=== PATIENT | male | born 1975 | race Two or more races ===

== ENCOUNTER 2024-09-14 09:18 | Outpatient (AMB) | payer SELFPAY ==
[2024-09-14 09:24] VITALS: BP 122/74; PULSE 59; RESP 18; TEMP 36.7; O2SAT 97; BMI 26.4
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
== END 2024-09-14 11:44 | disposition home or self-care (01) ==
LOC: HODAHC 09:18
PROVIDERS: Supervising Provider Internal Medicine
DX: Z00.00 Encounter for general adult medical examination without abnormal findings (principal); M25.512 Pain in left shoulder; M25.511 Pain in right shoulder; M77.8 Other enthesopathies, not elsewhere classified; F41.8 Other specified anxiety disorders; E05.90 Thyrotoxicosis, unspecified without thyrotoxic crisis or storm
CPT/HCPCS: 99213; G0463

== ENCOUNTER 2024-10-08 10:03 | Emergency (ER) | payer MEDICAID, SELFPAY ==
[2024-10-08 10:04] VITALS: BMI 25.7
[2024-10-08 10:39] VITALS: BP 117/65; PULSE 61; RESP 19; TEMP 37; O2SAT 97
--- NOTE | 2024-10-08 10:47 | XR_ITS ---
Examination: CT brain head without contrast. 2-D sagittal coronal reconstructions Date and time of exam:October 08, 2024 1231 hrs. Comparison October 23, 2020 Indications: Onset headaches dizziness left arm numbness beginning 3 days ago CTDI: vol (mGy):51.4 DLP: (mGycm):1101 Technique: Multiple CT axial sections of the brain have been obtained, 5 mm slice thickness. Contrast has not been administered. 2-D sagittal, coronal reconstructions have been obtained Low dose protocols were performed. One or more of the following dose reduction techniques were used; automated exposure control, adjustment of the mA and/or KV according to patient size, use of iterative reconstruction technique. Findings: No significant ventricular enlargement. Intra-axial or extra-axial hemorrhage density is not seen. No mass effect or midline shift Basal cisterns are not remarkable. Fourth ventricle is midline. Cranial vault intact. Impression: Negative for acute hemorrhage, mass effect or midline shift As clinically warranted, brain MRI follow-up would best assess for demyelinating disease, acute ischemic change
--- NOTE | 2024-10-08 10:47 | PD.EDRME ---
Rapid Medical Screening Exam RME Arrival date/time: 10/08/24 10:03 49-year-old male with past medical history of hypothyroid presents emergency department complaining of intermittent facial and left arm numbness with severe headache 10 out of 10 that is been ongoing for 1 week. Chief Complaint: Neuro Symptoms/Deficit Time Seen by Provider: 10/08/24 10:38 Vital signs: Vital Signs Temperature 98.6 F 10/08/24 10:39 Pulse Rate 61 10/08/24 10:39 Respiratory Rate 19 10/08/24 10:39 Blood Pressure 117/65 10/08/24 10:39 Pulse Oximetry (%) 97 10/08/24 10:39 Oxygen Delivery Method Room Air 10/08/24 10:39 Vital signs reviewed by provider: Yes
[2024-10-08 11:16] LABS: Basophils % (Auto) 0 % (0-2.5); Eosinophils # (Auto) 0.1 Thou/mm3 (0.0-0.5); Eosinophils % (Auto) 1 % (0-10); Hematocrit 44.4 % (41.0-53.0); Hemoglobin 15.7 g/dL (13.5-16.0); Immature Granulocytes % (Auto) 0 % (0-0); Immature Granulocytes Auto 0.01 Thou/mm3 (0.00-0.00); Lymphocytes # (Auto) 2.7 Thou/mm3 (1.0-4.8); Lymphocytes % (Auto) 43 % (10-50); Mean Corpuscular HGB Conc 35.4 g/dl (31.0-37.0); Mean Corpuscular Hemoglobin 33.1 pg (25.0-35.0); Mean Corpuscular Volume 94 fL (80-100); Monocytes # (Auto) 0.5 Thou/mm3 (0.0-0.8); Monocytes % (Auto) 7 % (0-12); Neutrophils # (Auto) 3.1 Thou/mm3 (1.8-7.7); Neutrophils % (Auto) 48 % (37-80); Nucleated Red Blood Cell % 0 /100 WBC (0); Platelet Count 298 Thou/mm3 (140-440); RDW Standard Deviation 40.3 fL (35.1-43.9); Red Blood Count 4.75 Miln/mm3 (4.50-5.90); White Blood Count 6.4 Thou/mm3 (3.8-10.6)
[2024-10-08] MEDS: ACETAMINOPHEN 500 MG TABLET 1000 MG PO (11:21)
[2024-10-08 11:35] LABS: Alanine Aminotransferase 20 U/L (10-49); Albumin, Serum 4.9 gm/dL (3.5-5.0); Albumin/Globulin Ratio 1.9 (1.2-2.2); Alkaline Phosphatase 74 U/L (46-116); Anion Gap 4 (7-16); Aspartate Amino Transferase 18 U/L (0-34); BUN/Creatinine Ratio 5 Ratio (12-20); Bilirubin,Total 0.5 mg/dL (0.3-1.2); Blood Urea Nitrogen 5 mg/dL (9-23); Calcium 10.2 mg/dL (8.3-10.6); Calcium (Corrected) 10.2 mg/dL (8.5-10.1); Carbon Dioxide 29.9 mMol/L (20.0-31.0); Chloride 105 mMol/L (98-107); Creatinine (Component) 1.1 mg/dL (0.6-1.3); Estimated Creatinine Clearance 86.5 mL/min (>60); Globulin 2.6 gm/dL (2.3-3.5); Glucose 95 mg/dL (74-106); Osmolality,Calculated 274 (275-295); Potassium 5.3 mMol/L (3.4-5.1); Sodium 139 mMol/L (136-145); Thyroid Stimulating Hormone 0.95 uIU/mL (0.55-4.78); Total Protein 7.5 gm/dL (5.7-8.2); eGFR > 60 See Note
[2024-10-08 11:40] LABS: Amphetamine/Methamp Scrn,U Negative (Negative); Barbiturate Screen,Urine Negative (Negative); Benzodiazepines Screen,Urine Negative (Negative); Benzoylecgonine Screen, Ur Negative (Negative); Fentanyl Screen,Urine Negative (Negative); Opiate Screen,Urine Negative (Negative); THC Screen,Urine Positive (Negative)
[2024-10-08 14:32] VITALS: BP 122/83; PULSE 63; RESP 18; TEMP 37.2; O2SAT 98
--- NOTE | 2024-10-08 14:33 | EDNOTE_ITS ---
ED General RME/HPI General Chief complaint: Neuro Symptoms/Deficit Stated complaint: HEADACHE, LEFT SIDE NUMBNESS, FACIAL X2 Time Seen by Provider: 10/08/24 10:38 Arrival date/time: 10/08/24 10:03 CC: Bilateral is numbness and tingling and pain in the upper extremities HPI onset a week plus ago intermittent in nature currently there. Patient is states he is unable to do push-ups secondary to pain in his left arm greater than the right. Patient denies falls or any other repetitive motion. RME / HPI RME / HPI narrative: 10/08/24 10:03 49-year-old male with past medical history of hypothyroid presents emergency department complaining of intermittent facial and left arm numbness with severe headache 10 out of 10 that is been ongoing for 1 week. Related Data Previous Rx's ?Medication ?Instructions ?Recorded ibuprofen 600 mg tablet (IBU) 600 mg PO Q8H PRN pain #90 tabs 09/14/24 prednisone 20 mg tablet See Taper PO BID 3 days #6 tabs 10/08/24 Allergies Allergy/AdvReac Type Severity Reaction Status Date / Time peanut Allergy Severe HIVES Verified 10/08/24 10:05 peanut oil Allergy Severe HIVES Verified 10/08/24 10:05 Review of Systems Review of Systems Narrative Review of Systems: GEN: No fever, no chills, no weight loss EYES: No discharge, no visual changes, no pain HEENT: No ear pain, no congestion, no sore throat PULM: No shortness of breath, no cough, no congestion CV: No chest pain, no dyspnea on exertion, no palpitations GI: No nausea, no vomiting, no diarrhea, no pain, no constipation : No frequency, no urgency, no dysuria MUSC/SKEL: No joint pain, no back pain,+ upper extremity pain SKIN: No rash PSYCH: No hallucinations, no depression HEME/LYMPH: No easy bleeding or bruising tendencies NEURO: No weakness, no headache Past Medical History Past Medical History CARDIAC: Negative Congestive Heart Failure RESPIRATORY: Negative Chronic Obstructive Pulmonary Disease (COPD) GENITOURINARY: Negative Renal Disease MUSCULOSKELETAL: Positive Musculoskeletal Disorders ENDOCRINE: Negative Diabetes Mellitus Type 1 or Diabetes Mellitus Type 2 Social History SMOKING STATUS: Never smoker SUBSTANCE USE: marijuana (Okay) ED Exam Narrative Physical exam: [General: In mild discomfort but not in any acute distress Head normocephalic HEENT: Within acceptable limits Neck is supple nontender Chest equal chest rise nontender to palpation Respiratory: Clear to auscultation no wheezes crackles or rubs CV: Rate rhythm is regular no murmurs rubs or clicks Abdomen is flat soft nontender no masses positive bowel sounds all 4 quadrants Back: No CVA tenderness no spinous process tenderness from cervical spine thoracic and lumbar spine Skin: Intact no petechiae rash induration ulceration or crepitus Extremities: Moving all extremities against resistance cap refill less than 2 seconds neurosensory intact: Upper extremities strength 5/5 rail signal 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 is 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 cap refill less than 2 seconds neurosensory intact Neuro: Awake alert oriented x3 Glascow coma 15 no focal deficits] Course Quality Measures none Orders Category Date Time Status CT head/brain wo con Stat Exams 10/08/24 10:47 Completed CBC Stat Lab 10/08/24 10:56 Completed CMP [Comprehensive Metabolic Panel] Stat Lab 10/08/24 10:56 Completed Drug Screen,Urine Stat Lab 10/08/24 11:08 Completed Free T4 (Free Thyroxine) Stat Lab 10/08/24 10:56 Completed TSH [Thyroid Stimulating Hormone] Stat Lab 10/08/24 10:56 Completed Acetaminophen Tab [Tylenol ES Tab] Med 10/08/24 10:47 Discontinued 1,000 mg PO X1 ONE Vital Signs Vital signs: Vital Signs Temperature 98.6 F 10/08/24 10:39 Pulse Rate 61 10/08/24 10:39 Respiratory Rate 19 10/08/24 10:39 Blood Pressure 117/65 10/08/24 10:39 Pulse Oximetry (%) 97 10/08/24 10:39 Oxygen Delivery Method Room Air 10/08/24 10:39 [facility] Patient data External records reviewed:: [facility] previous records Clinical information provided by:: patient Social determinants that could affect healthcare access:: none Patient has the following chronic illnesses:: None How is presenting disease/condition affected by chronic disease/condition?: u neffected by Evaluation data The following diagnostics were reviewed and interpreted by me:: lab results and radiology exam(s) Lab and/or radiology exams considered but not ordered:: CT head is interpreted by me read by radiology as negative for any acute finding CBC shows no acute leukocytosis, anemia thrombocytopenia CMP shows a mildly elevated potassium at 5.3 no other electrolyte imbalances renal impairment transaminitis or T. bili elevation Urine is positive for THC TSH is within acceptable limits Interpretation Summary: I suspect this is paresthesia in both upper extremities this could be secondary to nerve impingement in the cervical spine patient states he has had episodes like this in the past that spontaneously resolved. Patient does admit that he is under large amount of stress. Patient be discharged home with a diagnosis of upper extremity paresthesia follow-up with primary care provider consider referral outpatient to cervical spasm prescription benefit specialist. Medications Medications considered but not ordered:: None Medication administrations:: Medication Administration History Discontinued Medications Acetaminophen (Acetaminophen 500 Mg Tablet) 1,000 mg PO X1 ONE Stop: 10/08/24 10:48 Last Admin: 10/08/24 11:21 Dose: 1,000 mg Documented By: [facility] None Consultations Consultation(s) initiated? (list below): No Diagnosis Differential Diagnosis ED Complaint MDM: Hyperesthesia cervical spine nerve impingement paresthesia Most likely diagnosis given after review of the tests above:: Hyperesthesia Admission Indicated Admission indicated?: not indicated Explain why admission is indicated or not indicated:: Stable for outpatient follow-up Admission Request Was there a request for admission?: No Disposition Plan Disposition Plan: Discharge Discharge Attestation Discharge Attestation: The patient and all family members were given an opportunity to ask questions and understood the discharge instructions. Discharge instructions specifically effects, indications for sooner follow up or return to the emergency department, and the expected course of current diagnosis. Patient condition: Stable Medical Decision Making Differential Diagnosis Differential Diagnosis: Hyperesthesia cervical spine nerve impingement paresthesia Lab Data 10/08/24 10:56 10/08/24 10:56 Labs: Lab Results 10/08/24 10/08/24 Range/Units 10:56 11:08 WBC 6.4 (3.8-10.6) Thou/mm3 RBC 4.75 (4.50-5.90) Miln/mm3 Hgb 15.7 (13.5-16.0) g/dL Hct 44.4 (41.0-53.0) % MCV 94 (80-100) fL MCH 33.1 (25.0-35.0) pg MCHC 35.4 (31.0-37.0) g/dl RDW Std Deviation 40.3 (35.1-43.9) fL Plt Count 298 (140-440) Thou/mm3 Neut % (Auto) 48 (37-80) % Lymph % (Auto) 43 (10-50) % Rice % (Auto) 7 (0-12) % Eos % (Auto) 1 (0-10) % Baso % (Auto) 0 (0-2.5) % Neut # (Auto) 3.1 (1.8-7.7) Thou/mm3 Lymph # (Auto) 2.7 (1.0-4.8) Thou/mm3 Rice # (Auto) 0.5 (0.0-0.8) Thou/mm3 Eos # (Auto) 0.1 (0.0-0.5) Thou/mm3 Baso # (Auto) 0.0 (0.0-0.2) Thou/mm3 Immature Gran # (Auto) 0.01 H (0.00-0.00) Thou/mm3 Absolute Nucleated RBC 0.00 (0.00-0.00) Thou/mm3 Immature Gran % 0 (0-0) % Nucleated RBC % 0 (0) /100 WBC Sodium 139 (136-145) mMol/L Potassium 5.3 H (3.4-5.1) mMol/L Chloride 105 (98-107) mMol/L Carbon Dioxide 29.9 (20.0-31.0) mMol/L Anion Gap 4 L (7-16) BUN 5 L (9-23) mg/dL Creatinine 1.1 (0.6-1.3) mg/dL Estim Creat Clear Calc 86.5 (>60) mL/min eGFR > 60 (60 - ) See Note BUN/Creatinine Ratio 5 L (12-20) Ratio Glucose 95 (74-106) mg/dL Calculated Osmolality 274 L (275-295) Calcium 10.2 (8.3-10.6) mg/dL Corrected Calcium 10.2 H (8.5-10.1) mg/dL Total Bilirubin 0.5 (0.3-1.2) mg/dL AST 18 (0-34) U/L ALT 20 (10-49) U/L Alkaline Phosphatase 74 (46-116) U/L Total Protein 7.5 (5.7-8.2) gm/dL Albumin 4.9 (3.5-5.0) gm/dL Globulin 2.6 (2.3-3.5) gm/dL Albumin/Globulin Ratio 1.9 (1.2-2.2) TSH 0.95 (0.55-4.78) uIU/mL Free T4 1.20 (0.89-1.76) ng/dL Urine Opiates Screen Negative (Negative) Urine Fentanyl Screen Negative (Negative) Ur Barbiturates Screen Negative (Negative) U Amphetamin/Meth Scrn Negative (Negative) U Benzodiazepines Scrn Negative (Negative) U Cocaine Metab Screen Negative (Negative) U Marijuana (THC) Screen Positive A (Negative) Discharge Plan Plan Patient Disposition: HOME (Self Care) Patient condition on transfer: Stable Prescriptions/Referrals Prescriptions/Med Rec: New prednisone 20 mg tablet See Taper PO BID 3 Days Qty: 6 0RF Taper: Prednisone Taper 20 mg DAILY for 2 Days and 0 Hour 10 mg DAILY for 2 Days and 0 Hour 5 mg DAILY for 7 Days and 0 Hour No Action ibuprofen [IBU] 600 mg tablet 600 mg PO Q8H MDD 3 pills PRN (Reason: pain) Qty: 90 0RF Rx Instructions: Take with food. Referrals: Raza Romo MD [Primary Care Provider] - In 1 week Problem List Clinical Impression: Paresthesia Patient/Caregiver Discharge Instructions Print Language: Amharic Stand Alone Forms: [place] Award Info., Patient Portal Info Letter
== END 2024-10-08 14:45 | disposition home or self-care (01) ==
PROVIDERS: Emergency Provider Emergency Medicine; PCP Family Medicine
DX: R20.2 Paresthesia of skin (principal); R51.9 Headache, unspecified; R42 Dizziness and giddiness
CPT/HCPCS: 36415; 70450; 80053; 80307; 84439; 84443; 85025; 99284; A9270

== ENCOUNTER 2025-03-15 08:54 | Outpatient (AMB) | payer MEDICAID, SELFPAY ==
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
[2025-03-15 09:13] VITALS: BP 150/85; PULSE 57; RESP 18; TEMP 36.6; O2SAT 96; BMI 25.8
== END 2025-03-15 10:19 | disposition home or self-care (01) ==
LOC: HODAHC 08:54
PROVIDERS: Supervising Provider Internal Medicine; Visit Provider Student in an Organized Health Care Education/Training Program
DX: E05.90 Thyrotoxicosis, unspecified without thyrotoxic crisis or storm (principal); F43.11 Post-traumatic stress disorder, acute; M25.512 Pain in left shoulder; M77.8 Other enthesopathies, not elsewhere classified; G89.29 Other chronic pain; R10.2 Pelvic and perineal pain
CPT/HCPCS: 99213; G0463

== ENCOUNTER 2025-03-22 09:20 | Outpatient (AMB) | payer MEDICAID, SELFPAY ==
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
[2025-03-22 09:32] VITALS: BP 110/70; PULSE 64; RESP 18; TEMP 36.8; O2SAT 97; BMI 26.3
== END 2025-03-22 10:08 | disposition home or self-care (01) ==
LOC: HODAHC 09:20
PROVIDERS: Supervising Provider Internal Medicine
DX: M54.32 Sciatica, left side (principal); M54.31 Sciatica, right side; N39.43 Post-void dribbling; R53.82 Chronic fatigue, unspecified
CPT/HCPCS: 99213; G0463

== ENCOUNTER → 2025-03-23 | Outpatient (CLI) | payer MEDICAID, SELFPAY ==
--- NOTE | 2025-03-23 10:25 | XR_ITS ---
Examination: Lumbar spine 3 views Technique one AP lateral coned lateral lower lumbar spine 3 views Date and time: March 23, 2025 1048 hours INDICATIONS: Low back pain several years radiating down both legs FINDINGS: Satisfactory alignment lumbar vertebral bodies No lumbar fracture No spondylolisthesis Diffuse lumbar disc narrowing, advanced L5-S1 IMPRESSION: Diffuse lumbar degenerative disc disease, advanced L5-S1
== END | disposition home or self-care (01) ==
DX: M51.379 Other intervertebral disc degeneration, lumbosacral region without mention of lumbar back pain or lower extremity pain (principal); M54.30 Sciatica, unspecified side
CPT/HCPCS: 72100

== ENCOUNTER 2025-04-16 13:46 | Outpatient (AMB) | payer MEDICAID, SELFPAY ==
[2025-04-16 14:17] VITALS: BP 108/65; PULSE 59; RESP 18; TEMP 36.8; O2SAT 97; BMI 26.1
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
== END 2025-04-16 15:56 | disposition home or self-care (01) ==
LOC: HODAHC 13:46
PROVIDERS: Supervising Provider Internal Medicine
DX: M51.362 Other intervertebral disc degeneration, lumbar region with discogenic back pain and lower extremity pain (principal); M77.8 Other enthesopathies, not elsewhere classified; E78.5 Hyperlipidemia, unspecified; N39.8 Other specified disorders of urinary system
CPT/HCPCS: 99213; G0463

== ENCOUNTER → 2025-05-22 | Outpatient (CLI) | payer MEDICAID, SELFPAY ==
--- NOTE | 2025-05-22 15:30 | XR_ITS ---
Examination: MRI right elbow, without contrast Date and time of exam: May 22, 2025 1908 hours Comparison 06/16/2022 INDICATIONS: Right elbow pain 3 years Technique: Multiple axial sagittal and coronal images of the right elbow have been obtained with the Siemens high-resolution 1.5 Lizzeth MRI scanner. Images obtained include T2-weighted fat-suppressed sagittal sections, TR 3500, TE 46, T2 weighted coronal fat suppressed images, TR 3050, TE 84, T2-weighted transverse fat suppressed images, TR 3260, TE 63, proton density transverse images, TR 4720 TE 46, and T1 weighted coronal images, TR 560, TE 13. Findings: Mild narrowing of multiple joints with reactive marrow edema lateral humeral condylar region Small elbow effusion Mild strain common flexor tendon Extensor tendon and radial annular ligament intact Normal insertion long head of the biceps into radial tuberosity Increased thickness and increased signal in the triceps tendon consistent with strain No occult fracture Spurring of the coronoid process of the ulna No ulnar nerve impingement IMPRESSION: Mild osteoarthritis Reactive marrow edema in the lateral humeral condylar region secondary to joint narrowing Mild strain common flexor tendon Normal insertion long head of the biceps into the radial tuberosity Moderate tendinosis and strain triceps tendon No occult fracture
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
== END | disposition home or self-care (01) ==
LOC: SMRI 15:53
DX: M51.370 Other intervertebral disc degeneration, lumbosacral region with discogenic back pain only (principal); M48.061 Spinal stenosis, lumbar region without neurogenic claudication; M19.021 Primary osteoarthritis, right elbow; R60.0 Localized edema; S46.311A Strain of muscle, fascia and tendon of triceps, right arm, initial encounter; X83.8XXA Intentional self-harm by other specified means, initial encounter
CPT/HCPCS: 72148; 73221

== ENCOUNTER 2025-05-24 12:48 | Outpatient (RCR) | payer MEDICAID, SELFPAY ==
--- NOTE | 2025-05-24 13:15 | PT.OIERPT ---
PT OP Initial Eval Patient Information Outpatient Physical Therapy Treatment Date: 05/24/25 Visit Reasons: Left shoulder pain/Pelvic pain Medical Diagnosis: M25.512 M77.8 R10.2 Start of Care: 05/24/25 Date of Onset: 15 yrs ago Smoking Status Smoking Status: Unknown if ever smoked Are you interested in quitting?: Yes Would you like additional Smoking Cessation Counseling?: No Initial Assessment Subjective: Pt is 49 yr old male with c/o LBP that radiates into the LE's, B elbow pain and L shoulder pain. Pt reports loss of strength of B LE's and can walk about 1 block and other times it's worse and he has to rest every 100 feet and he loses strength completely. This limits all activities. The L shoulder started hurting 01/23/23 and it hurts to reach behind the back. PMH: hypothyroidism Imaging: MRI of L/S L5-S1 6 mm central lumbar disc bulge displacing both right and left S1 nerve, roots extending to the left intervertebral foramen producing mild left L5, ganglionic compression, L4-L5 severe overall spinal stenosis, axial image 8, 11 mm extruded central disc, severely indenting the thecal sac, combined with facet arthropathy and, thickening of ligamenta flava circumferentially surrounding the thecal sac Pt goal: less pain Objective: L shoulder ArOM: FF: 125 deg Abd: 125 deg with pain ER: 80 deg HBB: pain Zaragoza Hardik: positive Trunk ArOM: ? B SB 50% of normal with pain ? Extension: 20% with pain around L4-5, L5-S1 ? Flexion: 14 from floor with LBP ? B rotation: 60% with pain ? TTP: moderate paraspinals L5-S1 ? Neuro: R SLR: positive Assessment: Pt presents with high tissue irritability of the L/S and pain radiating into the LE's consistent with MRI that reveals severe stenosis, 11mm extruded disc, 6mm disc bulge at L5-S1 and other significant findings. Pt not likely going to benefit from skilled therapy to meet goals and has poor rehab potential since it looks like L5-S1 disc space is severely compressed and it is bone on bone. PT recommends orthopedic evaluation. He is managing the shoulder pain at home with exercises and he would prefer to continue with that at home and pt was given HEP printout. 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
== END 2025-06-10 23:59 | disposition home or self-care (01) ==
LOC: CPTX 12:48
PROVIDERS: PCP Psychiatry & Neurology Neurology; Referring Provider Psychiatry & Neurology Neurology; Visit Provider Student in an Organized Health Care Education/Training Program
DX: M25.512 Pain in left shoulder (principal); M77.8 Other enthesopathies, not elsewhere classified; R10.2 Pelvic and perineal pain; M54.50 Low back pain, unspecified; M25.522 Pain in left elbow; M25.521 Pain in right elbow
CPT/HCPCS: 97162

== ENCOUNTER 2025-06-04 15:17 | Outpatient (AMB) | payer MEDICAID, SELFPAY ==
[2025-06-04 15:05] VITALS: BP 110/71; PULSE 61; RESP 19; TEMP 36.6; O2SAT 98; BMI 25.7
--- NOTE | 2025-06-05 10:59 | ACNOTE_ITS ---
Vital Signs 06/04/25 15:05 Height 1.8 m Height Method Stated Weight 83.518 kg Weight Measurement Method Standing Scale BMI 25.7 BP 110/71 Blood Pressure Source Automatic Cuff Blood Pressure Location Right Upper Arm Position Sitting Respiration 19 Pulse 61 Pulse Source Monitor Temp 97.8 F Temp Source Temporal Artery Scan Pulse Oximetry (%) 98 Oxygen Delivery Method Room Air Allergies/Meds Allergies & Medications Allergies peanut Allergy (Severe, Verified 04/16/25 14:17) HIVES peanut oil Allergy (Severe, Verified 04/16/25 14:17) HIVES MA Intake Visit Data Collection New Patient or Established: Established Patient (seen at [facility] within 3 years) Seen by Clinical Staff ONLY (RN/MA): No Reason for Visit:: follow up back pain and elbow pain PCP or OBGYN visit in last 3 months: Yes Date of Last PCP or OBGYN visit: 04/16/25 Do You Feel Safe at Home: Yes Authorities Contacted: N/A Smoking Status Smoking Status: Unknown if ever smoked Immunization / Flu Flu Vaccine in the Last 12 Months: No Flu Vaccine Exclusion Criteria: No Exclusion Criteria Past Medical History Past Medical History CARDIAC: Negative Congestive Heart Failure RESPIRATORY: Negative Chronic Obstructive Pulmonary Disease (COPD) GENITOURINARY: Negative Renal Disease ENDOCRINE: Negative Diabetes Mellitus Type 1 or Diabetes Mellitus Type 2 Social History SMOKING STATUS: Smoking status: Unknown if ever smoked ALCOHOL FREQUENCY: Alcohol Intake Frequency: A Few Times a Month Patient Portal [place] Social History Tobacco History Smoking Status: Unknown if ever smoked Alcohol History Alcohol Intake Frequency: A Few Times a Month Domestic Abuse History Do You Feel Safe at Home: Yes Review of Systems Report any current symptoms Only answer those that you have currently: Past Medical History Past Medical History Have you ever been diagnosed with any of the following: Cardiology Problems Congestive Heart Failure: No Respiratory Problems Chronic Obstructive Pulmonary Disease (COPD): No Genital/Urinary Problems Renal Disease: No Endocrine Problems Diabetes Mellitus Type 1: No Diabetes Mellitus Type 2: No History of Present Illness HPI Narrative Patient examined at bedside today. Patient reports that he was able to have his lumbar spine and elbow MRI. He says that his pain has been manageable, and also would like to request an increase on his gabapentin at this time. He is open to getting any referral to orthopedic surgery based on his MRI results. He is questioning about being on disability for his chronic back condition. He did notes that he still has numbness and tingling that goes down his leg. He has no other complaints at this time. Review of Systems Review of Systems Narrative Review of Systems: 12 point ROS was reviewed and is otherwise negative unless stated directly in the HPI. Objective/Exam Narrative Physical exam: General: AAOx3, NAD, HEENT: Moist mucous membranes, conjunctiva clear, EOMI, PERRLA, Cardiovascular: S1, S2, radial pulses +2 bilat, RRR Pulmonary: CTAB bilat no cough, no wheezing GI: No tenderness to light or deep palpitation, no guarding, rigidity, rebound tenderness or distension Extremities: No presence of trace or pitting edema in lower extremities bilaterally, dorsalis pedis pulses +2 bilaterally Neuro: AAOx3, no focal motor or sensory deficits in the UE or LE bilat, + straight leg test Psych: Good judgement, thought and behavior Assessment & Plan Diagnosis / Problem List (1) Degenerative disc disease (DDD) of lumbar region with axial back pain and referred sclerotomal pain: Status: Acute Assessment & Plan: MRI lumbar spine shows: L5-S1 6 mm sharply lumbar disc bulges displacing both right and left S1 nerve roots and producing mild left L5 ganglionic impression L4-L5 severe overall spinal stenosis as above Patient will likely need Ortho evaluation who also treats spine and 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 Patient demonstrates symptomatic compression and will need to be evaluated for spinal surgery Will send patient to orthopedic surgery because he also has elbow concerns as well Plan: Orthopedic surgery referral Referral to pain management Gabapentin 300 mg at bedtime (2) Right elbow tendonitis: Status: Acute Assessment & Plan: MRI elbow shows: Mild osteoarthritis Reactive marrow edema in the lateral humeral condylar region secondary to joint narrowing Mild strain common flexor tendon Normal insertion long head of the biceps into the radial tuberosity Moderate tendinosis and strain triceps tendon No occult fracture Patient will also be evaluated by orthopedic surgery for further management although it is unlikely that there will be surgical intervention Will send patient to orthopedic surgery Plan: Orthopedic surgery referral as above Referral to pain management as above Orders: Referrals Referral Pain Management M51.362 - Other intervertebral disc degeneration, lumbar region with discogenic back pain and lower extremity pain Orthopedics Office Procedures [facility] Level of Care Nursing/Assessment Patient Status: Established Patient Nursing Assessment/Reassessment: Medication Reconciliation, Update PMH in EMR and Vital Signs Coordination of Care: Complex Care and Chronic Disease 1-5, Consent,records obtained, informed consent, Lab and Imaging orders and Results/Orders obtained Established Patient Charge Established Patient Point Assignment: 80 Established Patient Point Charge: Level 3 (80-115)
== END 2025-06-04 16:17 | disposition home or self-care (01) ==
LOC: HODAHC 15:17
PROVIDERS: PCP Psychiatry & Neurology Neurology; Referring Provider Psychiatry & Neurology Neurology
DX: M51.362 Other intervertebral disc degeneration, lumbar region with discogenic back pain and lower extremity pain (principal); M48.061 Spinal stenosis, lumbar region without neurogenic claudication; M77.8 Other enthesopathies, not elsewhere classified; M19.021 Primary osteoarthritis, right elbow
CPT/HCPCS: 99213; G0463

== ENCOUNTER 2025-08-29 13:15 | Outpatient (AMB) | payer MEDICAID, SELFPAY ==
--- NOTE | 2025-08-29 13:34 | ACNOTE_ITS ---
Vital Signs 08/29/25 13:35 Height 1.8 m Height Method Stated Weight 89.131 kg Weight Measurement Method Standing Scale BMI 27.5 BP 104/63 Blood Pressure Source Automatic Cuff Blood Pressure Location Left Upper Arm Position Sitting Respiration 18 Pulse 66 Pulse Source Monitor Temp 97.8 F Temp Source Temporal Artery Scan Pulse Oximetry (%) 96 Oxygen Delivery Method Room Air Allergies/Meds Allergies & Medications Allergies peanut Allergy (Severe, Verified 08/29/25 13:36) HIVES peanut oil Allergy (Severe, Verified 08/29/25 13:36) HIVES Medication Reconciliation ibuprofen 600 mg tablet (IBU) 600 mg PO Q8H PRN pain #90 tabs 07/26/25 [Rx Confirmed 08/29/25] methimazole 10 mg tablet 10 mg PO QDAY 30 days #30 tabs 07/26/25 [Rx Confirmed 08/29/25] cyclobenzaprine 5 mg tablet 5 mg PO TID PRN muscle spasm #90 tabs 08/29/25 [Rx] gabapentin 300 mg capsule 300 mg PO TID PRN burning pain 1 month #90 caps 08/29/25 [Rx] lidocaine 5 % topical patch 1 patch topical QDAY #30 ea 08/29/25 [Rx] MA Intake Visit Data Collection Pain Present Currently: Yes Pain Location: Back Pain scale:: 8 PCP or OBGYN visit in last 3 months: Yes Smoking Status Smoking Status: Unknown if ever smoked Immunization / Flu Flu Vaccine in the Last 12 Months: No Flu Vaccine Exclusion Criteria: No Exclusion Criteria Past Medical History Past Medical History CARDIAC: Negative Congestive Heart Failure RESPIRATORY: Negative Chronic Obstructive Pulmonary Disease (COPD) GENITOURINARY: Negative Renal Disease ENDOCRINE: Negative Diabetes Mellitus Type 1 or Diabetes Mellitus Type 2 Social History SMOKING STATUS: Smoking status: Unknown if ever smoked ALCOHOL FREQUENCY: Alcohol Intake Frequency: A Few Times a Month Patient Portal Questionaires Social History Tobacco History Smoking Status: Unknown if ever smoked Alcohol History Alcohol Intake Frequency: A Few Times a Month Review of Systems Report any current symptoms Only answer those that you have currently: Past Medical History Past Medical History Have you ever been diagnosed with any of the following: Cardiology Problems Congestive Heart Failure: No Respiratory Problems Chronic Obstructive Pulmonary Disease (COPD): No Genital/Urinary Problems Renal Disease: No Endocrine Problems Diabetes Mellitus Type 1: No Diabetes Mellitus Type 2: No History of Present Illness HANNA Bran is a 50 y/o male with PMHx of DDD, spinal stenosis and lumbar disc herination who comes for a follow up. Patient states that he continues to have pain in his lumbar region and needs cane to help him walk at times. He says that he has been taking his gabapentin that gives him slight relief. He does ask on his follow ups for his referrals for Orthopedics and Pain management. He says that his pain is worsening and is open to trying new agents to provide him for some relief until he gets appointments with his specialists. He does not need any refills at this time. No other complaints at this time. Review of Systems Review of Systems Narrative Review of Systems: 12 point ROS reviewed and is otherwise negative unless stated directly in the HPI Objective/Exam Narrative Physical exam: General: AAOx3, in mild distress, has a cane to help walk HEENT: Moist mucous membranes, conjunctiva clear, EOMI, PERRLA, Cardiovascular: S1, S2, radial pulses +2 bilat, RRR Pulmonary: CTAB bilat no cough, no wheezing GI: No tenderness to light or deep palpitation, no guarding, rigidity, rebound tenderness or distension MSK: Straight leg test positive on R leg, pain worsens in lumbar spine with flexion and extension Extremities: No presence of trace or pitting edema in lower extremities b ilaterally, dorsalis pedis pulses +2 bilaterally Neuro: AAOx3, no focal motor or sensory deficits in the UE or LE bilat other than having some numbness and tingling when walking Psych: Good judgement, thought and behavior Assessment & Plan Diagnosis / Problem List (1) Degenerative disc disease (DDD) of lumbar region with axial back pain and referred sclerotomal pain: Status: Acute Assessment & Plan: MRI in May 2025: L5-S1 6 mm sharply lumbar disc bulges displacing both right and left S1 nerve roots and producing mild left L5 ganglionic impression L4-L5 severe overall spinal stenosis as above His pain is worsening Patient will require increase multimodal pain management to manage his symptoms until he sees specialists of pain management and orthopedics Ultimately, pt will need to get surgical evaluation Plan: Increased to Gabapentin 300 mg TID PRN Flexeril 5 mg TID PRN Lidocaine Patches 5% PRN Follow up with pain management referral Follow up with orthopedic referral Orders: Referrals Orthopedics M51.362 - Other intervertebral disc degeneration, lumbar region with discogenic back pain and lower extremity pain Office Procedures [facility] Level of Care Nursing/Assessment Patient Status: Established Patient Nursing Assessment/Reassessment: Medication Reconciliation, Update PMH in EMR and Vital Signs Coordination of Care: Complex Care and Chronic Disease 1-5, Complex Care/Chronic Disease 5 or more, Education Complex Pt/Fam and Ref for ancillary service Established Patient Charge Established Patient Point Assignment: 130 Established Patient Point Charge: EP Level 4 (120-155)
[2025-08-29 13:35] VITALS: BP 104/63; PULSE 66; RESP 18; TEMP 36.6; O2SAT 96; BMI 27.5
== END 2025-08-29 14:50 | disposition home or self-care (01) ==
LOC: HODAHC 13:15
PROVIDERS: Supervising Provider Internal Medicine
DX: M51.362 Other intervertebral disc degeneration, lumbar region with discogenic back pain and lower extremity pain (principal); M48.061 Spinal stenosis, lumbar region without neurogenic claudication
CPT/HCPCS: 99214; G0463